=== PATIENT | male | born 1960 | race Caucasian/White ===

== ENCOUNTER 2016-05-14 08:42 | Day surgery (SDC) | payer OTHER ==
[~2016-05-14] VITALS: Ht 175.3 cm; Wt 140.0 kg
[~2016-05-14 08:42] MED LIST: ABAT125S INJ; ACLI400A2 INH; ALBU8.5H3 INH; ALBU8.5H5 INH; ALBUTEROL 0.083%; AMLO10TA4 PO; ATEN100T PO; ATEN25TA PO; ATEN50TA41 PO; AZEL205. NAS; CEFD300C2 PO; CETI10TA18 PO; CETI10TA32 PO; CLON0.25 PO; CLON1TAB23 PO; CYCL-259 PO; DILT240C2 PO; DIPH25CA61 PO; DOXY100C15 PO; DOXY100T PO; FLUT16SP INH; FOLI-17 PO; FURO20TA3 PO; FURO40TA6 PO; GUAI-103 PO; GUAI400T26 PO; HYDR-3240 PO; HYDR-3343 PO; HYDR100T25 PO; IBUP800T PO; LEFL20TA16 PO; LEVO750T26 PO; MAGNESIUM PO; METO200T3 PO; MINO100C PO; MOME13HF INH; OMEP40CA6 PO; OXYC-229 PO; OXYC1TAB9 PO; OXYC5CAP4 PO; POTA10CA PO; POTA20PA8 PO; POTA25TA3 PO; POTA25TA4 PO; PRED-298 PO; PRED10TA PO; PRED10TA14 PO; SULF1TAB3 PO; VENL37.57 PO; VENL37.58 PO; VENL75TA PO
[2016-05-14 09:23] VITALS: BP 145/84
[2016-05-14] MEDS ORDERED: LACTATED RINGERS 1,000 ML IV SCH (09:45)
[2016-05-14] MEDS ORDERED: MIDAZOLAM 1 MG/ML, 2ML ONE (11:20)
[2016-05-14] MEDS ORDERED: FENTANYL PF 250 MCG/5ML ONE (11:20)
[2016-05-14] MEDS ORDERED: KETAMINE 10 MG/ML, 20ML ONE (11:25)
[2016-05-14] MEDS ORDERED: OXYcodone 5 MG/5 ML ORAL.SOL UDC PO PRN (12:00)
[2016-05-14] MEDS ORDERED: PROMETHAZINE 25 MG/ML, 1ML IV PRN (12:00)
[2016-05-14] MEDS ORDERED: KETOROLAC 30 MG/1 ML IV PRN (12:00)
[2016-05-14] MEDS ORDERED: FENTANYL PF 100 MCG/2ML IV PRN (12:00)
[2016-05-14] MEDS ORDERED: LABETALOL 5MG/ML, 20ML IV PRN (12:00)
[2016-05-14] MEDS ORDERED: ONDANSETRON 2MG/ML, 2ML IVPush PRN (12:00)
[2016-05-14] MEDS ORDERED: ALBUTEROL/IPRATROPIUM 2.5MG/0.5MG, 3 ML NPPB PRN (12:00)
[2016-05-14] MEDS ORDERED: hydrALAzine 20 MG/ML, 1ML IV PRN (12:00)
[2016-05-14] MEDS ORDERED: HYDROmorphone 1 MG/ML, 1ML IV PRN (12:00)
[2016-05-14] MEDS ORDERED: ALBUTEROL SULFATE 2.5 MG/3 ML NPPB PRN (12:00)
[2016-05-14] MEDS ORDERED: PROPOFOL 10 MG/ML, 20ML ONE (16:12)
[2016-05-14] MEDS ORDERED: PROPOFOL 10 MG/ML, 50ML ONE (16:12)
== END 2016-05-14 12:50 | disposition home or self-care (01) ==
LOC: OUT 08:42
PROVIDERS: ATTEND Internal Medicine Gastroenterology
DX: C15.5 Malignant neoplasm of lower third of esophagus (principal); K21.9 Gastro-esophageal reflux disease without esophagitis; J45.909 Unspecified asthma, uncomplicated; J44.9 Chronic obstructive pulmonary disease, unspecified; I10 Essential (primary) hypertension; F41.9 Anxiety disorder, unspecified; F32.9 Major depressive disorder, single episode, unspecified; F17.210 Nicotine dependence, cigarettes, uncomplicated; F12.90 Cannabis use, unspecified, uncomplicated; E66.01 Morbid (severe) obesity due to excess calories; Z68.42 Body mass index [BMI] 45.0-49.9, adult
CPT/HCPCS: 43239; 88305; J2250; J2704; J3010; J7120

== ENCOUNTER 2016-06-16 14:49 | Emergency (ER) | payer OTHER ==
[~2016-06-16] VITALS: Ht 175.3 cm; Wt 129.5 kg
[~2016-06-16 14:49] MED LIST changes: -CEFD300C2 PO; +CEFD300C37 PO
[2016-06-16] MEDS ORDERED: PROM25SU34 RC (15:57)
[2016-06-16] MEDS ORDERED: PANT20TA3 PO (15:57)
[2016-06-16] MEDS ORDERED: SODIUM CHLORIDE FLUSH 10ML SYR IVF ONE (16:00)
[2016-06-16] MEDS ORDERED: SODIUM CHLORIDE 0.9% 1,000ML IVBOLUS ONE (16:00)
[2016-06-16] MEDS ORDERED: ONDANSETRON 2MG/ML, 2ML IVPush ONE (16:00)
[2016-06-16] MEDS ORDERED: ONDANSETRON 2MG/ML, 2ML ONE (16:01)
[2016-06-16 16:05] LABS: BLOOD UREA NITROGEN 10 mg/dL (7-18)
[2016-06-16 16:19] VITALS: BP 111/69
== END 2016-06-16 17:37 | disposition home or self-care (01) ==
LOC: ED 17:12
DX: C15.9 Malignant neoplasm of esophagus, unspecified (principal); R13.10 Dysphagia, unspecified; K21.9 Gastro-esophageal reflux disease without esophagitis; J45.909 Unspecified asthma, uncomplicated; I10 Essential (primary) hypertension
CPT/HCPCS: 36415; 80048; 82040; 85025; 96361; 96374; 99285; J2405; J7030

== ENCOUNTER 2016-06-19 16:57 | Emergency (ER) | payer OTHER ==
[~2016-06-19] VITALS: Ht 175.3 cm; Wt 126.2 kg
[~2016-06-19 16:57] MED LIST changes: +PANT20TA3 PO; +PROM25SU34 RC
[2016-06-19] MEDS ORDERED: SODIUM CHLORIDE 0.9% 1,000ML IVBOLUS ONE (17:30)
[2016-06-19] MEDS ORDERED: SODIUM CHLORIDE FLUSH 10ML SYR IVF ONE (17:30)
[2016-06-19] MEDS ORDERED: ONDANSETRON 2MG/ML, 2ML ONE (17:44)
[2016-06-19 17:59] LABS: ASPARTATE AMINO TRANSFERASE 16 U/L (15-37); BLOOD UREA NITROGEN 10 mg/dL (7-18)
[2016-06-19] MEDS ORDERED: ONDANSETRON 2MG/ML, 2ML IVPush ONE (19:00)
[2016-06-19 19:09] VITALS: BP 117/87
[2016-06-20] MEDS ORDERED: IBUP200T48 PO (22:44)
[2016-06-20] MEDS ORDERED: LEFL10TA14 PO (22:46)
[2016-06-20] MEDS ORDERED: ABAT125S INJ (22:47)
[2016-06-20] MEDS ORDERED: OMEP40CA6 PO (22:48)
[2016-06-20] MEDS ORDERED: MOME13HF INH (23:15)
[2016-06-20] MEDS ORDERED: ACLI400A2 INH (23:17)
[2016-06-20] MEDS ORDERED: CLON-365 PO (23:19)
[2016-06-20] MEDS ORDERED: CYCL-259 PO (23:20)
== END 2016-06-19 19:12 | disposition home or self-care (01) ==
LOC: ED 19:03
DX: R11.0 Nausea (principal); K59.00 Constipation, unspecified; E11.9 Type 2 diabetes mellitus without complications; I10 Essential (primary) hypertension; F17.200 Nicotine dependence, unspecified, uncomplicated
CPT/HCPCS: 36415; 74020; 80053; 83690; 85025; 96361; 96374; 99285; J2405; J7030

== ENCOUNTER 2016-06-20 21:48 | Emergency (ER) | payer OTHER ==
[~2016-06-20] VITALS: Ht 175.3 cm; Wt 120.0 kg
[2016-06-20] MEDS ORDERED: IBUP200T48 PO (22:44)
[2016-06-20] MEDS ORDERED: LEFL10TA14 PO (22:46)
[2016-06-20] MEDS ORDERED: ABAT125S INJ (22:47)
[2016-06-20] MEDS ORDERED: OMEP40CA6 PO (22:48)
[2016-06-20] MEDS ORDERED: SODIUM CHLORIDE 0.9% 1,000ML IVBOLUS ONE (23:00)
[2016-06-20] MEDS ORDERED: SODIUM CHLORIDE FLUSH 10ML SYR IVF ONE (23:00)
[2016-06-20 23:14] LABS: BLOOD UREA NITROGEN 12 mg/dL (7-18)
[2016-06-20] MEDS ORDERED: MOME13HF INH (23:15)
[2016-06-20 23:17] LABS: ASPARTATE AMINO TRANSFERASE 22 U/L (15-37)
[2016-06-20] MEDS ORDERED: ACLI400A2 INH (23:17)
[2016-06-20] MEDS ORDERED: CLON-365 PO (23:19)
[2016-06-20] MEDS ORDERED: CYCL-259 PO (23:20)
[2016-06-21] MEDS ORDERED: OMNIPAQUE 350 MG/ML, 100ML BOTTLE ONE (00:13)
[2016-06-21] MEDS ORDERED: SODIUM CHLORIDE 0.9% 1,000ML IVBOLUS ONE (01:00)
[2016-06-21 01:18] LABS: SPERM-FLAG NOT PRESENT; SRC-FLAG NOT PRESENT; XTAL-FLAG NOT PRESENT; YLC-FLAG NOT PRESENT
[2016-06-21 01:58] VITALS: BP 135/90
== END 2016-06-21 01:59 | disposition home or self-care (01) ==
LOC: ED 23:32
DX: E86.0 Dehydration (principal); K62.5 Hemorrhage of anus and rectum; R10.84 Generalized abdominal pain; E11.9 Type 2 diabetes mellitus without complications; I10 Essential (primary) hypertension; M06.9 Rheumatoid arthritis, unspecified; J45.909 Unspecified asthma, uncomplicated; F17.200 Nicotine dependence, unspecified, uncomplicated
CPT/HCPCS: 36415; 74177; 80053; 81001; 83690; 85025; 85610; 85730; 96360; 96361; 99285; J7030; Q9967

== ENCOUNTER 2016-06-25 10:48 | Inpatient (IN) | payer OTHER ==
[~2016-06-25] VITALS: Ht 175.3 cm; Wt 125.3 kg
[~2016-06-25 10:48] MED LIST changes: +CLON-365 PO; +IBUP200T48 PO; +LEFL10TA14 PO
[2016-06-25] MEDS ORDERED: LACTATED RINGERS 1,000 ML IV SCH (11:42)
[2016-06-25] MEDS ORDERED: ONDA8TAB9 PO (11:55)
[2016-06-25] MEDS ORDERED: ALBU0.63 NEB (11:55)
[2016-06-25] MEDS ORDERED: CARBOPLATIN IV (11:55)
[2016-06-25] MEDS ORDERED: PACLITAXEL IV (11:55)
[2016-06-25] MEDS ORDERED: MAGN500C PO (11:56)
[2016-06-25] MEDS ORDERED: DIPH25CA61 PO (11:56)
[2016-06-25] MEDS ORDERED: LIDOCAINE 1%, 2ML SQ PRN (12:00)
[2016-06-25] MEDS ORDERED: HEPARIN 5,000 UNITS/ML, 1ML ONE (12:44)
[2016-06-25] MEDS ORDERED: LIDOCAINE/PF 1%, 30ML ONE (12:45)
[2016-06-25] MEDS ORDERED: HEPARIN 1,000 UNITS/ML, 10ML ONE (12:45)
[2016-06-25] MEDS ORDERED: BUPIVACAINE/PF-EPI 0.5% 1:200K ONE (12:45)
[2016-06-25] MEDS ORDERED: ONDANSETRON 2MG/ML, 2ML ONE ×2 (13:05→15:39)
[2016-06-25] MEDS ORDERED: PROPOFOL 10 MG/ML, 20ML ONE (13:05)
[2016-06-25] MEDS ORDERED: GLYCOPYRROLATE 0.2MG/1ML ONE (13:05)
[2016-06-25] MEDS ORDERED: CEFAZOLIN 1,000 MG ONE (13:05)
[2016-06-25] MEDS ORDERED: ROCURONIUM 10 MG/ML ONE (13:05)
[2016-06-25] MEDS ORDERED: SUCCINYLCHOLINE 20 MG/ML, 10ML ONE (13:05)
[2016-06-25] MEDS ORDERED: NEOSTIGMINE 1 MG/ML, 10ML ONE (13:05)
[2016-06-25] MEDS ORDERED: DEXAMETHASONE 4 MG/ML, 1ML ONE (13:05)
[2016-06-25] MEDS ORDERED: FENTANYL PF 250 MCG/5ML ONE (13:06)
[2016-06-25] MEDS ORDERED: BUPIVACAINE/PF-EPI 0.25% 1:200K ONE (13:39)
[2016-06-25] MEDS ORDERED: LABETALOL 5MG/ML, 20ML IV PRN (14:00)
[2016-06-25] MEDS ORDERED: ONDANSETRON 2MG/ML, 2ML IVPush PRN (14:00)
[2016-06-25] MEDS ORDERED: PROMETHAZINE 25 MG/ML, 1ML IV PRN (14:00)
[2016-06-25] MEDS ORDERED: hydrALAzine 20 MG/ML, 1ML IV PRN (14:00)
[2016-06-25] MEDS ORDERED: OXYcodone 5 MG/5 ML ORAL.SOL UDC PO PRN (14:00)
[2016-06-25] MEDS ORDERED: MEPERIDINE/PF 25MG/0.5ML IVPush PRN (14:00)
[2016-06-25] MEDS ORDERED: MIDAZOLAM 1 MG/ML, 2ML IV PRN (14:00)
[2016-06-25] MEDS: morphine SULFATE 10 MG/ML, 1ML IV PRN ×5 (15:20→20:00)
[2016-06-25] MEDS ORDERED: morphine SULFATE 10 MG/ML, 1ML ONE (15:23)
[2016-06-25] MEDS ORDERED: FUROSEMIDE 20 MG/2 ML ONE (15:35)
[2016-06-25] MEDS ORDERED: OXYcodone 5 MG/5 ML ORAL.SOL UDC ONE (15:46)
[2016-06-25] MEDS: FENTANYL PF 100 MCG/2ML IV PRN ×2 (16:00→16:15)
[2016-06-25] MEDS ORDERED: FENTANYL PF 100 MCG/2ML ONE (16:05)
[2016-06-25] MEDS: HYDROmorphone 1 MG/ML, 1ML IV PRN ×2 (16:20→16:26)
[2016-06-25] MEDS ORDERED: HYDROmorphone 2 MG/ML, 1ML ONE (16:25)
[2016-06-25] MEDS ORDERED: FUROSEMIDE 20 MG/2 ML IV ONE (16:30)
[2016-06-25 17:00] VITALS: BP 140/80
[2016-06-25] MEDS: LACTATED RINGERS 1,000 ML IV SCH (17:30)
[2016-06-25] MEDS ORDERED: ALBUTEROL/IPRATROPIUM 2.5MG/0.5MG, 3 ML ONE (17:38)
[2016-06-25] MEDS: ENOXAPARIN 40 MG/0.4 ML SQ SCH (18:00)
[2016-06-25 19:01] VITALS: BP 122/63
[2016-06-25] MEDS ORDERED: ALBUTEROL SULFATE 2.5 MG/3 ML ONE (19:15)
[2016-06-25] MEDS: KETOROLAC 30 MG/1 ML IV PRN (20:00)
[2016-06-25] MEDS: DIPHENHYDRAMINE MC SCH (21:00)
[2016-06-25] MEDS: IBUPROFEN MC SCH (21:00)
[2016-06-25] MEDS: ALBUTEROL SULFATE 2.5 MG/3 ML NPPB SCH (21:00)
[2016-06-25] MEDS: CYCLOBENZAPRINE MC SCH (21:00)
[2016-06-25] MEDS: CETIRIZINE MC SCH (21:00)
[2016-06-25] MEDS: DULERA HOMEINH SCH (23:00)
[2016-06-25 23:42] VITALS: BP 148/79
[2016-06-26] MEDS: KETOROLAC 30 MG/1 ML IV PRN ×2 (02:21→20:11)
[2016-06-26] MEDS: morphine SULFATE 10 MG/ML, 1ML IV PRN ×3 (02:21→20:11)
[2016-06-26] MEDS: LACTATED RINGERS 1,000 ML IV SCH ×3 (02:41→17:30)
[2016-06-26 04:01] VITALS: BP 139/72
[2016-06-26] MEDS: ALBUTEROL SULFATE 2.5 MG/3 ML NPPB SCH ×3 (07:20→19:51)
[2016-06-26 07:30] VITALS: BP 150/85
[2016-06-26] MEDS ORDERED: TEMPLATE NON-FORMULARY MED. (Albuterol Sulfate (Proair Hfa) 0 PUFFS) INH PRN (07:30)
[2016-06-26] MEDS ORDERED: ALBUTEROL SULFATE 2.5 MG/3 ML NEB PRN (07:30)
[2016-06-26] MEDS: [UNRECOGNIZED DRUG - OTHER] INH SCH ×2 (09:00→21:46)
[2016-06-26] MEDS: CETIRIZINE MC SCH ×2 (09:00→16:49)
[2016-06-26] MEDS: FLUTICASONE NASAL SPRAY 16GM NAS SCH ×2 (09:00→21:46)
[2016-06-26] MEDS: ACLIDINIUM BROMIDE 400 MCG INH SCH ×2 (09:00→21:46)
[2016-06-26] MEDS: DULERA HOMEINH SCH ×2 (09:00→21:45)
[2016-06-26] MEDS ORDERED: CETIRIZINE HCL 20 MG PO SCH (09:00)
[2016-06-26] MEDS: FORMOTEROL INH SCH ×2 (09:00→21:46)
[2016-06-26] MEDS: DIPHENHYDRAMINE MC SCH ×2 (09:00→16:49)
[2016-06-26] MEDS: FOLIC ACID 1 MG TABLET PO SCH (09:00)
[2016-06-26] MEDS: CYCLOBENZAPRINE MC SCH ×2 (09:00→16:49)
[2016-06-26] MEDS: IBUPROFEN 200 MG TABLET PO SCH ×3 (09:00→21:43)
[2016-06-26] MEDS: IBUPROFEN MC SCH ×2 (09:00→16:49)
[2016-06-26] MEDS: VENLAFAXINE 75MG TABLET PO SCH (09:00)
[2016-06-26] MEDS: ATENOLOL 100 MG TABLET PO SCH ×2 (09:00→23:06)
[2016-06-26] MEDS: AZELASTINE HCL NAS SCH (09:00)
[2016-06-26] MEDS: POTASSIUM CHLORIDE 20 MEQ TAB.ER.PRT PO SCH (09:00)
[2016-06-26] MEDS: MOMETASONE INH SCH ×2 (09:00→21:46)
[2016-06-26 09:38] LABS: BLOOD UREA NITROGEN 15 mg/dL (7-18)
[2016-06-26 09:40] LABS: ASPARTATE AMINO TRANSFERASE 25 U/L (15-37)
[2016-06-26] MEDS: DIPHENHYDRAMINE 25 MG CAPSULE PO SCH ×2 (10:33→21:42)
[2016-06-26] MEDS: CYCLOBENZAPRINE 10 MG TABLET PO SCH ×3 (10:33→21:42)
[2016-06-26] MEDS ORDERED: ENOXAPARIN 40 MG/0.4 ML SQ SCH (12:30)
[2016-06-26] MEDS ORDERED: ONDANSETRON 2MG/ML, 2ML IVPush PRN (12:30)
[2016-06-26 13:20] VITALS: BP 109/66
[2016-06-26] MEDS: METOPROLOL SUCCINATE 100 MG TAB.ER.24H PO SCH ×2 (14:16→21:45)
[2016-06-26] MEDS: MAGNESIUM OXIDE 400 MG TABLET PO SCH (14:17)
[2016-06-26] MEDS: OMEPRAZOLE 20 MG CAPSULE.DR PO SCH ×2 (14:17→21:44)
[2016-06-26] MEDS: SODIUM CHLORIDE 0.9% 1,000 ML IV SCH ×2 (14:19→23:34)
[2016-06-26 19:15] VITALS: BP 130/79
[2016-06-26 21:37] VITALS: BP 138/73
[2016-06-26] MEDS: AMLODIPINE 5 MG TABLET PO SCH (21:43)
[2016-06-26] MEDS: ENOXAPARIN 40 MG/0.4 ML SQ SCH (21:49)
[2016-06-27] VITALS (7 sets, daily range): BP systolic 108–135; BP diastolic 68–82
[2016-06-27] MEDS: CYCLOBENZAPRINE MC SCH ×3 (01:00→16:03)
[2016-06-27] MEDS: IBUPROFEN MC SCH ×3 (01:00→16:03)
[2016-06-27] MEDS: CETIRIZINE MC SCH ×3 (01:00→16:03)
[2016-06-27] MEDS: DIPHENHYDRAMINE MC SCH ×3 (01:00→16:03)
[2016-06-27] MEDS: ONDANSETRON 8 MG TABLET PO PRN ×3 (02:46→15:53)
[2016-06-27] MEDS: morphine SULFATE 10 MG/ML, 1ML IV PRN ×2 (03:13→09:25)
[2016-06-27] MEDS: KETOROLAC 30 MG/1 ML IV PRN ×2 (03:13→15:53)
[2016-06-27] MEDS: ALBUTEROL SULFATE 2.5 MG/3 ML NPPB SCH ×2 (07:36→20:51)
[2016-06-27] MEDS: DULERA HOMEINH SCH ×2 (08:39→20:46)
[2016-06-27] MEDS: ACLIDINIUM BROMIDE 400 MCG INH SCH ×2 (08:40→20:45)
[2016-06-27] MEDS: [UNRECOGNIZED DRUG - OTHER] INH SCH ×2 (08:41→20:46)
[2016-06-27] MEDS: MOMETASONE INH SCH ×2 (08:41→20:46)
[2016-06-27] MEDS: SODIUM CHLORIDE FLUSH 3ML SYRINGE IVF SCH ×2 (08:41→20:54)
[2016-06-27] MEDS: FORMOTEROL INH SCH ×2 (08:41→20:46)
[2016-06-27] MEDS: AZELASTINE HCL NAS SCH (08:41)
[2016-06-27] MEDS: FLUTICASONE NASAL SPRAY 16GM NAS SCH ×2 (08:42→20:45)
[2016-06-27] MEDS: FOLIC ACID 1 MG TABLET PO SCH (08:43)
[2016-06-27] MEDS: OMEPRAZOLE 20 MG CAPSULE.DR PO SCH ×2 (08:43→20:42)
[2016-06-27] MEDS: MAGNESIUM OXIDE 400 MG TABLET PO SCH (08:43)
[2016-06-27] MEDS: POTASSIUM CHLORIDE 20 MEQ TAB.ER.PRT PO SCH (08:43)
[2016-06-27] MEDS: ATENOLOL 100 MG TABLET PO SCH ×2 (08:44→20:44)
[2016-06-27] MEDS: METOPROLOL SUCCINATE 100 MG TAB.ER.24H PO SCH ×2 (08:44→20:44)
[2016-06-27] MEDS: DIPHENHYDRAMINE 25 MG CAPSULE PO SCH ×2 (08:44→20:42)
[2016-06-27] MEDS: VENLAFAXINE 75MG TABLET PO SCH (08:45)
[2016-06-27] MEDS: IBUPROFEN 200 MG TABLET PO SCH ×3 (08:47→20:54)
[2016-06-27] MEDS: CYCLOBENZAPRINE 10 MG TABLET PO SCH ×3 (08:47→20:42)
[2016-06-27] MEDS: OXYcodone/APAP 10/325MG TABLET PO PRN ×2 (10:45→20:42)
[2016-06-27] MEDS: ENOXAPARIN 40 MG/0.4 ML SQ SCH (17:45)
[2016-06-27] MEDS: AMLODIPINE 5 MG TABLET PO SCH (20:44)
[2016-06-28 00:45] VITALS: BP 127/77
[2016-06-28] MEDS: DIPHENHYDRAMINE MC SCH (01:00)
[2016-06-28] MEDS: CETIRIZINE MC SCH (01:00)
[2016-06-28] MEDS: CYCLOBENZAPRINE MC SCH (01:00)
[2016-06-28] MEDS: IBUPROFEN MC SCH (01:00)
[2016-06-28] MEDS: KETOROLAC 30 MG/1 ML IV PRN ×2 (03:39→11:36)
[2016-06-28 06:17] LABS: BLOOD UREA NITROGEN 18 mg/dL (7-18)
[2016-06-28 06:21] LABS: ASPARTATE AMINO TRANSFERASE 23 U/L (15-37)
[2016-06-28 07:37] VITALS: BP 153/90
[2016-06-28] MEDS: FLUTICASONE NASAL SPRAY 16GM NAS SCH (07:39)
[2016-06-28] MEDS: ACLIDINIUM BROMIDE 400 MCG INH SCH (07:40)
[2016-06-28] MEDS: DULERA HOMEINH SCH (07:40)
[2016-06-28] MEDS: FORMOTEROL INH SCH (07:41)
[2016-06-28] MEDS: [UNRECOGNIZED DRUG - OTHER] INH SCH (07:41)
[2016-06-28] MEDS: MOMETASONE INH SCH (07:41)
[2016-06-28] MEDS: AZELASTINE HCL NAS SCH (07:41)
[2016-06-28] MEDS: SODIUM CHLORIDE FLUSH 3ML SYRINGE IVF SCH (08:45)
[2016-06-28] MEDS: DIPHENHYDRAMINE 25 MG CAPSULE PO SCH (08:46)
[2016-06-28] MEDS: VENLAFAXINE 75MG TABLET PO SCH (08:46)
[2016-06-28] MEDS: POTASSIUM CHLORIDE 20 MEQ TAB.ER.PRT PO SCH (08:48)
[2016-06-28] MEDS: MAGNESIUM OXIDE 400 MG TABLET PO SCH (08:48)
[2016-06-28] MEDS: FOLIC ACID 1 MG TABLET PO SCH (08:48)
[2016-06-28] MEDS: OMEPRAZOLE 20 MG CAPSULE.DR PO SCH (08:49)
[2016-06-28] MEDS: IBUPROFEN 200 MG TABLET PO SCH ×2 (08:49→08:54)
[2016-06-28] MEDS: METOPROLOL SUCCINATE 100 MG TAB.ER.24H PO SCH (08:50)
[2016-06-28] MEDS: ATENOLOL 100 MG TABLET PO SCH (08:50)
[2016-06-28] MEDS: OXYcodone/APAP 10/325MG TABLET PO PRN (08:52)
[2016-06-28] MEDS: CYCLOBENZAPRINE 10 MG TABLET PO SCH (08:53)
[2016-06-28] MEDS: ALBUTEROL SULFATE 2.5 MG/3 ML NPPB SCH (09:45)
[2016-06-28] MEDS ORDERED: OMEP40CA6 PO (11:30)
[2016-06-28 13:34] VITALS: BP 118/69
[2016-06-28] MEDS ORDERED: ALBUTEROL SULFATE 2.5 MG/3 ML NPPB SCH (21:00)
[2016-07-06] MEDS ORDERED: LEFL20TA16 PO (18:24)
[2016-07-06] MEDS ORDERED: ABAT125S INJ (18:24)
[2016-07-06] MEDS ORDERED: CYCL-259 PO (18:24)
== END 2016-06-28 15:34 | disposition home or self-care (01) | DRG 353 ==
LOC: OUT 10:48 → 4NOR 17:00 → OUT 23:03 → 4NOR 23:04 → 3NW 06-28 07:45
PROVIDERS: ADMIT Surgery; ATTEND Surgery
PROC: 0JHD0WZ Insertion of Totally Implantable Vascular Access Device into Right Upper Arm Subcutaneous Tissue and Fascia, Open Approach (ICD-10-PCS; 2016-06-25)
PROC: 02HV33Z Insertion of Infusion Device into Superior Vena Cava, Percutaneous Approach (ICD-10-PCS; 2016-06-25)
PROC: B5181ZA Fluoroscopy of Superior Vena Cava using Low Osmolar Contrast, Guidance (ICD-10-PCS; 2016-06-25)
PROC: 0DHA0UZ Insertion of Feeding Device into Jejunum, Open Approach (ICD-10-PCS; principal; 2016-06-25 13:00)
PROC: 0WQF0ZZ Repair Abdominal Wall, Open Approach (ICD-10-PCS; 2016-06-25 13:00)
DX: K22.2 Esophageal obstruction (principal); E43 Unspecified severe protein-calorie malnutrition; C16.0 Malignant neoplasm of cardia; Z68.41 Body mass index [BMI] 40.0-44.9, adult; C15.4 Malignant neoplasm of middle third of esophagus; C15.9 Malignant neoplasm of esophagus, unspecified; K43.0 Incisional hernia with obstruction, without gangrene; R13.10 Dysphagia, unspecified; E66.01 Morbid (severe) obesity due to excess calories; M06.9 Rheumatoid arthritis, unspecified; M19.90 Unspecified osteoarthritis, unspecified site; F32.9 Major depressive disorder, single episode, unspecified; F41.9 Anxiety disorder, unspecified; G47.33 Obstructive sleep apnea (adult) (pediatric); G89.29 Other chronic pain; I10 Essential (primary) hypertension; J30.2 Other seasonal allergic rhinitis; J44.9 Chronic obstructive pulmonary disease, unspecified; K21.9 Gastro-esophageal reflux disease without esophagitis; K43.2 Incisional hernia without obstruction or gangrene; F17.210 Nicotine dependence, cigarettes, uncomplicated; Z79.891 Long term (current) use of opiate analgesic; Z79.899 Other long term (current) drug therapy; Z88.6 Allergy status to analgesic agent; Z88.1 Allergy status to other antibiotic agents; Y84.2 Radiological procedure and radiotherapy as the cause of abnormal reaction of the patient, or of later complication, without mention of misadventure at the time of the procedure; Y92.89 Other specified places as the place of occurrence of the external cause; Y93.89 Activity, other specified; Y99.8 Other external cause status; Y73.1 Therapeutic (nonsurgical) and rehabilitative gastroenterology and urology devices associated with adverse incidents; Z51.0 Encounter for antineoplastic radiation therapy; R59.9 Enlarged lymph nodes, unspecified
CPT/HCPCS: 36415; 71010; 77001; 77336; 77387; 77412; 80053; 83735; 84100; 85025; 94640; J0690; J1100; J1170; J1644; J1650; J1885; J2405; J2704; J2710; J3010; J3490; J7613; Q0162; C1788; J0330; J1940; J2270; J7030; J7120; Q0163

== ENCOUNTER → 2016-07-05 | Outpatient (CLI) | payer OTHER ==
[~2016-07-05] MED LIST changes: +ALBU0.63 NEB; +AMOX1TAB64 PO; +CARBOPLATIN IV; +MAGN500C PO; +ONDA8TAB9 PO; +PACLITAXEL IV; +VENL75CA6 PO
== END | disposition home or self-care (01) ==
LOC: WOUND 09:51
PROVIDERS: ATTEND Physician Assistant
DX: T81.31XA Disruption of external operation (surgical) wound, not elsewhere classified, initial encounter (principal); K43.0 Incisional hernia with obstruction, without gangrene; Z85.828 Personal history of other malignant neoplasm of skin; I10 Essential (primary) hypertension; M06.9 Rheumatoid arthritis, unspecified; J45.909 Unspecified asthma, uncomplicated; F32.9 Major depressive disorder, single episode, unspecified; F41.9 Anxiety disorder, unspecified; F17.210 Nicotine dependence, cigarettes, uncomplicated; Y92.89 Other specified places as the place of occurrence of the external cause; Y83.8 Other surgical procedures as the cause of abnormal reaction of the patient, or of later complication, without mention of misadventure at the time of the procedure
CPT/HCPCS: 11042; G0463; WOU0463

== ENCOUNTER 2016-07-10 11:24 | Inpatient (IN) | payer OTHER ==
[~2016-07-10] VITALS: Ht 175.3 cm; Wt 121.0 kg
[~2016-07-10 11:24] MED LIST changes: -AMOX1TAB64 PO; -VENL75CA6 PO
[2016-07-10] MEDS ORDERED: SODIUM CHLORIDE FLUSH 10ML SYR IVF ONE (12:00)
[2016-07-10] MEDS ORDERED: SODIUM CHLORIDE 0.9% 1,000ML IVBOLUS ONE ×2 (12:00→15:30)
[2016-07-10 12:11] LABS: ASPARTATE AMINO TRANSFERASE 11 U/L (15-37); BLOOD UREA NITROGEN 6 mg/dL (7-18)
[2016-07-10] MEDS ORDERED: ABAT125S INJ (13:04)
[2016-07-10] MEDS ORDERED: VENL75CA6 PO (13:06)
[2016-07-10] MEDS ORDERED: DIPH25CA61 PO (13:07)
[2016-07-10] MEDS ORDERED: AMOX1TAB64 PO (13:34)
[2016-07-10] MEDS ORDERED: ONDANSETRON 2MG/ML, 2ML ONE (13:59)
[2016-07-10] MEDS ORDERED: ONDANSETRON 2MG/ML, 2ML IVPush ONE (14:00)
[2016-07-10] MEDS ORDERED: ONDANSETRON 8 MG TABLET PO PRN (16:30)
[2016-07-10] MEDS ORDERED: CETIRIZINE HCL 20 MG PO SCH (21:00)
[2016-07-10] MEDS ORDERED: AMLODIPINE 5 MG TABLET PO SCH (21:00)
[2016-07-10] MEDS: FLUTICASONE NASAL SPRAY 16GM NAS SCH (21:00)
[2016-07-10] MEDS: METOPROLOL SUCCINATE 100 MG TAB.ER.24H PO SCH (21:00)
[2016-07-10] MEDS: ATENOLOL 100 MG TABLET PO SCH (21:00)
[2016-07-10 21:26] VITALS: BP 122/66
[2016-07-10] MEDS: CYCLOBENZAPRINE 10 MG TABLET PO SCH (22:14)
[2016-07-10] MEDS: DIPHENHYDRAMINE 25 MG CAPSULE PO SCH (22:14)
[2016-07-10] MEDS: SODIUM CHLORIDE 0.9% 1,000 ML IV SCH (22:14)
[2016-07-10] MEDS: DOCUSATE 100 MG CAPSULE PO SCH (22:15)
[2016-07-10] MEDS: OXYcodone/APAP 10/325MG TABLET PO PRN (22:15)
[2016-07-10] MEDS: OMEPRAZOLE 20 MG CAPSULE.DR PO SCH (22:15)
[2016-07-10] MEDS: AMOXICILLIN/CLAV 875-125MG TABLET PO SCH (22:15)
[2016-07-10] MEDS: ONDANSETRON 2MG/ML, 2ML IVPush PRN (22:16)
[2016-07-10] MEDS ORDERED: ALBUTEROL SULFATE 2.5 MG/3 ML ONE (23:15)
[2016-07-11 00:26] VITALS: BP 113/74
[2016-07-11] MEDS ORDERED: ALBUTEROL SULFATE 2.5 MG/3 ML NPPB PRN (01:30)
[2016-07-11] MEDS: SODIUM CHLORIDE 0.9% 1,000 ML IV SCH (05:05)
[2016-07-11 05:42] LABS: BLOOD UREA NITROGEN 6 mg/dL (7-18)
[2016-07-11 05:45] LABS: ASPARTATE AMINO TRANSFERASE 9 U/L (15-37)
[2016-07-11] MEDS: OMEPRAZOLE 20 MG CAPSULE.DR PO SCH ×2 (08:00→18:21)
[2016-07-11 08:30] VITALS: BP 164/107
[2016-07-11] MEDS: ALBUTEROL SULFATE 2.5 MG/3 ML NPPB SCH ×2 (09:00→10:51)
[2016-07-11] MEDS: DIPHENHYDRAMINE 25 MG CAPSULE PO SCH (09:00)
[2016-07-11] MEDS: DOCUSATE 100 MG CAPSULE PO SCH (09:00)
[2016-07-11] MEDS: FLUTICASONE NASAL SPRAY 16GM NAS SCH (09:00)
[2016-07-11] MEDS: AMOXICILLIN/CLAV 875-125MG TABLET PO SCH (09:00)
[2016-07-11] MEDS: CYCLOBENZAPRINE 10 MG TABLET PO SCH ×2 (09:00→18:21)
[2016-07-11] MEDS ORDERED: FOLIC ACID 1 MG TABLET PO SCH (09:00)
[2016-07-11] MEDS: ATENOLOL 100 MG TABLET PO SCH (09:00)
[2016-07-11] MEDS ORDERED: VENLAFAXINE XR 37.5MG CAP.ER.24H PO SCH (09:00)
[2016-07-11] MEDS ORDERED: POLYETHYLENE GLYCOL 17 GM PACKET PO SCH (09:00)
[2016-07-11] MEDS ORDERED: CETIRIZINE 10 MG TABLET PO SCH (09:00)
[2016-07-11] MEDS: OXYcodone/APAP 10/325MG TABLET PO PRN ×2 (09:14→17:14)
[2016-07-11] MEDS: ONDANSETRON 2MG/ML, 2ML IVPush PRN (09:14)
[2016-07-11] MEDS: METOPROLOL SUCCINATE 100 MG TAB.ER.24H PO SCH (09:49)
[2016-07-11] MEDS ORDERED: ACETAMINOPHEN 325 MG TABLET PO PRN (11:30)
[2016-07-11] MEDS ORDERED: PROMETHAZINE 25 MG/ML, 1ML IV PRN (11:30)
[2016-07-11] MEDS ORDERED: MIDAZOLAM 1 MG/ML, 2ML IV PRN (11:30)
[2016-07-11] MEDS ORDERED: LABETALOL 5MG/ML, 20ML IV PRN (11:30)
[2016-07-11] MEDS ORDERED: OXYcodone 5 MG/5 ML ORAL.SOL UDC PO PRN (11:30)
[2016-07-11] MEDS ORDERED: MEPERIDINE/PF 25MG/0.5ML IVPush PRN (11:30)
[2016-07-11] MEDS ORDERED: HYDROmorphone 1 MG/ML, 1ML IV PRN (11:30)
[2016-07-11] MEDS ORDERED: hydrALAzine 20 MG/ML, 1ML IV PRN (11:30)
[2016-07-11] MEDS ORDERED: FENTANYL PF 100 MCG/2ML IV PRN (11:30)
[2016-07-11] MEDS ORDERED: ONDANSETRON 2MG/ML, 2ML IVPush PRN (11:30)
[2016-07-11] MEDS ORDERED: METOCLOPRAMIDE 5 MG/ML, 2ML IV PRN (11:30)
[2016-07-11] MEDS ORDERED: METOCLOPRAMIDE 5 MG/ML, 2ML ONE (11:52)
[2016-07-11] MEDS ORDERED: PROMETHAZINE 25 MG/ML, 1ML ONE (11:52)
[2016-07-11] MEDS ORDERED: OXYcodone 5 MG/5 ML ORAL.SOL UDC ONE (12:20)
[2016-07-11 14:47] VITALS: BP 156/85
[2016-07-11] MEDS ORDERED: PROPOFOL 10 MG/ML, 20ML ONE (15:40)
[2016-07-11] MEDS ORDERED: ONDANSETRON 2MG/ML, 2ML ONE (15:40)
== END 2016-07-11 19:20 | disposition home or self-care (01) | DRG 393 ==
LOC: ED 13:36 → EDIP 15:57 → 3NW 19:23
PROVIDERS: ADMIT Internal Medicine; ATTEND Internal Medicine
PROC: BD11YZZ Fluoroscopy of Esophagus using Other Contrast (ICD-10-PCS; 2016-07-11)
PROC: 0D758DZ Dilation of Esophagus with Intraluminal Device, Via Natural or Artificial Opening Endoscopic (ICD-10-PCS; principal; 2016-07-11 11:00)
DX: K94.13 Enterostomy malfunction (principal); E43 Unspecified severe protein-calorie malnutrition; C15.9 Malignant neoplasm of esophagus, unspecified; F11.20 Opioid dependence, uncomplicated; K43.0 Incisional hernia with obstruction, without gangrene; E86.0 Dehydration; D64.9 Anemia, unspecified; D75.89 Other specified diseases of blood and blood-forming organs; E66.01 Morbid (severe) obesity due to excess calories; F17.200 Nicotine dependence, unspecified, uncomplicated; F41.9 Anxiety disorder, unspecified; F32.9 Major depressive disorder, single episode, unspecified; G47.33 Obstructive sleep apnea (adult) (pediatric); G89.29 Other chronic pain; I10 Essential (primary) hypertension; J44.9 Chronic obstructive pulmonary disease, unspecified; J45.909 Unspecified asthma, uncomplicated; K21.9 Gastro-esophageal reflux disease without esophagitis; K22.2 Esophageal obstruction; K59.09 Other constipation; M06.9 Rheumatoid arthritis, unspecified; Z71.6 Tobacco abuse counseling; Z79.899 Other long term (current) drug therapy; Z68.39 Body mass index [BMI] 39.0-39.9, adult
CPT/HCPCS: 36415; 74328; 80053; 81001; 83690; 83735; 84100; 85025; 87086; 94640; 96361; 96374; J2405; J2550; J2704; J7613; C1769; C1876; J2765; J7030; Q0163

== ENCOUNTER → 2016-07-12 | Outpatient (CLI) | payer OTHER ==
[~2016-07-12] MED LIST changes: +AMOX1TAB64 PO; +VENL75CA6 PO
== END | disposition home or self-care (01) ==
LOC: WOUND 13:30
PROVIDERS: ATTEND Physician Assistant
DX: T81.31XD Disruption of external operation (surgical) wound, not elsewhere classified, subsequent encounter (principal); C15.4 Malignant neoplasm of middle third of esophagus; C15.5 Malignant neoplasm of lower third of esophagus; M06.9 Rheumatoid arthritis, unspecified; I10 Essential (primary) hypertension; J45.909 Unspecified asthma, uncomplicated; F32.9 Major depressive disorder, single episode, unspecified; F41.9 Anxiety disorder, unspecified; F17.210 Nicotine dependence, cigarettes, uncomplicated; E66.01 Morbid (severe) obesity due to excess calories; K21.9 Gastro-esophageal reflux disease without esophagitis; G47.30 Sleep apnea, unspecified; Z68.39 Body mass index [BMI] 39.0-39.9, adult; Z96.653 Presence of artificial knee joint, bilateral; Y83.8 Other surgical procedures as the cause of abnormal reaction of the patient, or of later complication, without mention of misadventure at the time of the procedure
CPT/HCPCS: 11042

== ENCOUNTER → 2016-07-17 | Outpatient (CLI) | payer OTHER | END | disposition home or self-care (01) | LOC: WOUND 14:30 | PROVIDERS: ATTEND Internal Medicine | DX: T81.31XD Disruption of external operation (surgical) wound, not elsewhere classified, subsequent encounter (principal); I10 Essential (primary) hypertension; J45.909 Unspecified asthma, uncomplicated; F32.9 Major depressive disorder, single episode, unspecified; F17.210 Nicotine dependence, cigarettes, uncomplicated; F41.9 Anxiety disorder, unspecified; Z96.653 Presence of artificial knee joint, bilateral; Z85.828 Personal history of other malignant neoplasm of skin; Y83.8 Other surgical procedures as the cause of abnormal reaction of the patient, or of later complication, without mention of misadventure at the time of the procedure | CPT/HCPCS: 11042; 97605 ==

== ENCOUNTER → 2016-07-24 | Outpatient (CLI) | payer OTHER | END | disposition home or self-care (01) | LOC: WOUND 13:15 | PROVIDERS: ATTEND Internal Medicine | DX: T81.31XD Disruption of external operation (surgical) wound, not elsewhere classified, subsequent encounter (principal); F41.9 Anxiety disorder, unspecified; F32.9 Major depressive disorder, single episode, unspecified; J44.9 Chronic obstructive pulmonary disease, unspecified; K21.9 Gastro-esophageal reflux disease without esophagitis; E66.01 Morbid (severe) obesity due to excess calories; Z68.39 Body mass index [BMI] 39.0-39.9, adult; M06.9 Rheumatoid arthritis, unspecified; F11.20 Opioid dependence, uncomplicated; Z85.01 Personal history of malignant neoplasm of esophagus; Z85.828 Personal history of other malignant neoplasm of skin; F17.210 Nicotine dependence, cigarettes, uncomplicated; Y83.8 Other surgical procedures as the cause of abnormal reaction of the patient, or of later complication, without mention of misadventure at the time of the procedure | CPT/HCPCS: 11042; 87070; 87077; 87186; 87205; 97605 ==

== ENCOUNTER 2016-07-31 11:38 | Day surgery (SDC) | payer OTHER ==
[~2016-07-31] VITALS: Ht 175.3 cm; Wt 112.0 kg
[2016-07-31 12:14] VITALS: BP 95/61
[2016-07-31 12:23] VITALS: BP 95/61
[2016-07-31] MEDS ORDERED: LACTATED RINGERS 1,000 ML IV SCH (12:43)
[2016-07-31] MEDS ORDERED: ONDANSETRON 2MG/ML, 2ML ONE (13:04)
[2016-07-31] MEDS ORDERED: PROPOFOL 10 MG/ML, 20ML ONE (13:04)
[2016-07-31] MEDS ORDERED: SUCCINYLCHOLINE 20 MG/ML, 10ML ONE (13:04)
[2016-07-31] MEDS ORDERED: MIDAZOLAM 1 MG/ML, 2ML ONE (13:07)
[2016-07-31] MEDS ORDERED: FENTANYL PF 100 MCG/2ML ONE (13:07)
[2016-07-31] MEDS ORDERED: ACETAMINOPHEN 325 MG TABLET PO PRN (14:00)
[2016-07-31] MEDS ORDERED: OXYcodone 5 MG/5 ML ORAL.SOL UDC PO PRN (14:00)
[2016-07-31] MEDS ORDERED: HYDROmorphone 1 MG/ML, 1ML IV PRN (14:00)
[2016-07-31] MEDS ORDERED: PROMETHAZINE 25 MG/ML, 1ML IV PRN (14:00)
[2016-07-31] MEDS ORDERED: hydrALAzine 20 MG/ML, 1ML IV PRN (14:00)
[2016-07-31] MEDS ORDERED: EPHEDRINE 50 MG/ML, 1ML IVPush PRN (14:00)
[2016-07-31] MEDS ORDERED: KETOROLAC 30 MG/1 ML IV PRN (14:00)
[2016-07-31] MEDS ORDERED: FENTANYL PF 100 MCG/2ML IV PRN (14:00)
[2016-07-31] MEDS ORDERED: HYDROcodone/APAP 7.5-325MG/15ML UDC PO PRN (14:00)
[2016-07-31] MEDS ORDERED: MIDAZOLAM 1 MG/ML, 2ML IV PRN (14:00)
[2016-07-31] MEDS ORDERED: LABETALOL 5MG/ML, 20ML IV PRN (14:00)
[2016-07-31] MEDS ORDERED: ONDANSETRON 2MG/ML, 2ML IVPush PRN (14:00)
[2016-07-31] MEDS ORDERED: MEPERIDINE/PF 25MG/0.5ML IVPush PRN (14:00)
== END 2016-07-31 14:40 ==
LOC: OUT 11:38
PROVIDERS: ATTEND Internal Medicine Gastroenterology
DX: K44.9 Diaphragmatic hernia without obstruction or gangrene (principal); F41.9 Anxiety disorder, unspecified; J45.909 Unspecified asthma, uncomplicated; F32.9 Major depressive disorder, single episode, unspecified; F19.90 Other psychoactive substance use, unspecified, uncomplicated; Z98.890 Other specified postprocedural states; Z85.01 Personal history of malignant neoplasm of esophagus; Z87.891 Personal history of nicotine dependence
CPT/HCPCS: 43247; 93005; J0330; J2250; J2405; J2704; J3010; J7120

== ENCOUNTER → 2016-08-07 | Outpatient (CLI) | payer OTHER | END | disposition home or self-care (01) | LOC: WOUND 14:30 | PROVIDERS: ATTEND Internal Medicine | DX: T81.31XD Disruption of external operation (surgical) wound, not elsewhere classified, subsequent encounter (principal); F41.9 Anxiety disorder, unspecified; F32.9 Major depressive disorder, single episode, unspecified; J44.9 Chronic obstructive pulmonary disease, unspecified; E66.01 Morbid (severe) obesity due to excess calories; Z68.39 Body mass index [BMI] 39.0-39.9, adult; F11.20 Opioid dependence, uncomplicated; M06.9 Rheumatoid arthritis, unspecified; Z85.828 Personal history of other malignant neoplasm of skin; Z85.01 Personal history of malignant neoplasm of esophagus; F17.210 Nicotine dependence, cigarettes, uncomplicated; Y83.8 Other surgical procedures as the cause of abnormal reaction of the patient, or of later complication, without mention of misadventure at the time of the procedure | CPT/HCPCS: 97597 ==

== ENCOUNTER → 2016-08-14 | Outpatient (CLI) | payer OTHER | END | disposition home or self-care (01) | LOC: WOUND 13:00 | PROVIDERS: ATTEND Internal Medicine | DX: T81.31XD Disruption of external operation (surgical) wound, not elsewhere classified, subsequent encounter (principal); C15.4 Malignant neoplasm of middle third of esophagus; C15.5 Malignant neoplasm of lower third of esophagus; K43.0 Incisional hernia with obstruction, without gangrene; M06.9 Rheumatoid arthritis, unspecified; M19.90 Unspecified osteoarthritis, unspecified site; I10 Essential (primary) hypertension; F32.9 Major depressive disorder, single episode, unspecified; F41.9 Anxiety disorder, unspecified; J44.9 Chronic obstructive pulmonary disease, unspecified; E66.01 Morbid (severe) obesity due to excess calories; F11.20 Opioid dependence, uncomplicated; K21.9 Gastro-esophageal reflux disease without esophagitis; G47.30 Sleep apnea, unspecified; E43 Unspecified severe protein-calorie malnutrition; F17.210 Nicotine dependence, cigarettes, uncomplicated; Z68.39 Body mass index [BMI] 39.0-39.9, adult; Z96.653 Presence of artificial knee joint, bilateral; Y83.8 Other surgical procedures as the cause of abnormal reaction of the patient, or of later complication, without mention of misadventure at the time of the procedure | CPT/HCPCS: 11042; 97605 ==

== ENCOUNTER → 2016-08-21 | Outpatient (CLI) | payer OTHER | END | disposition home or self-care (01) | LOC: WOUND 13:00 | PROVIDERS: ATTEND Internal Medicine | DX: T81.31XD Disruption of external operation (surgical) wound, not elsewhere classified, subsequent encounter (principal); K43.0 Incisional hernia with obstruction, without gangrene; L03.311 Cellulitis of abdominal wall; I10 Essential (primary) hypertension; J45.909 Unspecified asthma, uncomplicated; M06.9 Rheumatoid arthritis, unspecified; M19.90 Unspecified osteoarthritis, unspecified site; F32.9 Major depressive disorder, single episode, unspecified; F41.9 Anxiety disorder, unspecified; F17.210 Nicotine dependence, cigarettes, uncomplicated; Z96.653 Presence of artificial knee joint, bilateral; Z85.01 Personal history of malignant neoplasm of esophagus; Y83.8 Other surgical procedures as the cause of abnormal reaction of the patient, or of later complication, without mention of misadventure at the time of the procedure | CPT/HCPCS: 97597 ==

== ENCOUNTER → 2016-08-28 | Outpatient (CLI) | payer OTHER | END | disposition home or self-care (01) | LOC: WOUND 13:16 | PROVIDERS: ATTEND Internal Medicine | DX: T81.31XD Disruption of external operation (surgical) wound, not elsewhere classified, subsequent encounter (principal); I10 Essential (primary) hypertension; M06.9 Rheumatoid arthritis, unspecified; M19.90 Unspecified osteoarthritis, unspecified site; E66.01 Morbid (severe) obesity due to excess calories; J44.9 Chronic obstructive pulmonary disease, unspecified; K21.9 Gastro-esophageal reflux disease without esophagitis; F11.20 Opioid dependence, uncomplicated; F19.90 Other psychoactive substance use, unspecified, uncomplicated; F17.210 Nicotine dependence, cigarettes, uncomplicated; F41.9 Anxiety disorder, unspecified; F32.9 Major depressive disorder, single episode, unspecified; Z68.39 Body mass index [BMI] 39.0-39.9, adult; Z85.828 Personal history of other malignant neoplasm of skin; Z79.899 Other long term (current) drug therapy; Z85.01 Personal history of malignant neoplasm of esophagus; Z96.653 Presence of artificial knee joint, bilateral; Y83.8 Other surgical procedures as the cause of abnormal reaction of the patient, or of later complication, without mention of misadventure at the time of the procedure; G47.33 Obstructive sleep apnea (adult) (pediatric) | CPT/HCPCS: 97597 ==

== ENCOUNTER 2016-09-04 13:32 | Emergency (ER) | payer OTHER ==
[~2016-09-04] VITALS: Ht 175.3 cm; Wt 90.0 kg
[2016-09-04] VITALS (8 sets, daily range): BP systolic 101–133; BP diastolic 61–91
[~2016-09-04 13:32] MED LIST changes: -ALBU18HF INH; -ONDA8TAB12 PO
[2016-09-04] MEDS ORDERED: SODIUM CHLORIDE 0.9% 1,000 ML IV ONE (13:44)
[2016-09-04] MEDS ORDERED: ONDANSETRON 2MG/ML, 2ML IVPush ONE (14:00)
[2016-09-04] MEDS ORDERED: SODIUM CHLORIDE 0.9% 1,000ML IVBOLUS ONE (14:00)
[2016-09-04] MEDS ORDERED: MORPHINE SULFATE 4 MG/ML, 1ML IVPush PRN (14:00)
[2016-09-04 14:17] LABS: ASPARTATE AMINO TRANSFERASE 38 U/L (15-37); BLOOD UREA NITROGEN 12 mg/dL (7-18)
[2016-09-04 14:27] LABS: ANISOCYTOSIS 3+; HYPOCHROMIA 1+; MICROCYTOSIS 1+; POLYCHROMASIA 1+
[2016-09-04 14:28] LABS: LARGE PLATELETS 1+
[2016-09-04] MEDS ORDERED: MORPHINE SULFATE 4 MG/ML, 1ML ONE (15:29)
[2016-09-04] MEDS ORDERED: ONDANSETRON 2MG/ML, 2ML ONE (15:30)
== END 2016-09-04 20:30 | disposition home or self-care (01) ==
LOC: ED 16:54
DX: D64.81 Anemia due to antineoplastic chemotherapy (principal); D61.1 Drug-induced aplastic anemia; M06.9 Rheumatoid arthritis, unspecified; Z88.1 Allergy status to other antibiotic agents; Z88.0 Allergy status to penicillin
CPT/HCPCS: 36415; 36430; 74022; 80053; 85025; 86850; 86900; 86923; 93005; 96361; 96374; 96375; 99285; J2405; J7030; P9016

== ENCOUNTER → 2016-09-04 | Outpatient (CLI) | payer OTHER ==
[~2016-09-04] MED LIST changes: +ALBU18HF INH; +ONDA8TAB12 PO
== END | disposition home or self-care (01) ==
LOC: WOUND 13:00
PROVIDERS: ATTEND Internal Medicine
DX: T81.31XD Disruption of external operation (surgical) wound, not elsewhere classified, subsequent encounter (principal); K43.0 Incisional hernia with obstruction, without gangrene; I10 Essential (primary) hypertension; J45.909 Unspecified asthma, uncomplicated; M06.9 Rheumatoid arthritis, unspecified; F32.9 Major depressive disorder, single episode, unspecified; F41.9 Anxiety disorder, unspecified; E43 Unspecified severe protein-calorie malnutrition; J44.9 Chronic obstructive pulmonary disease, unspecified; K21.9 Gastro-esophageal reflux disease without esophagitis; E66.01 Morbid (severe) obesity due to excess calories; Z68.39 Body mass index [BMI] 39.0-39.9, adult; G47.30 Sleep apnea, unspecified; F11.20 Opioid dependence, uncomplicated; Z85.828 Personal history of other malignant neoplasm of skin; M19.90 Unspecified osteoarthritis, unspecified site; Z85.01 Personal history of malignant neoplasm of esophagus; Z96.653 Presence of artificial knee joint, bilateral; F17.200 Nicotine dependence, unspecified, uncomplicated; Y83.8 Other surgical procedures as the cause of abnormal reaction of the patient, or of later complication, without mention of misadventure at the time of the procedure
CPT/HCPCS: G0463; WOU0463

== ENCOUNTER 2016-09-06 15:20 | Inpatient (IN) | payer OTHER ==
[~2016-09-06] VITALS: Ht 175.3 cm; Wt 113.2 kg
[2016-09-06] MEDS ORDERED: ONDANSETRON 2MG/ML, 2ML ONE (16:21)
[2016-09-06] MEDS ORDERED: HYDROmorphone 1 MG/ML, 1ML ONE (16:21)
[2016-09-06] MEDS: HYDROmorphone 1 MG/ML, 1ML IVPush PRN (16:28)
[2016-09-06] MEDS ORDERED: ONDANSETRON 2MG/ML, 2ML IVPush ONE (16:30)
[2016-09-06] MEDS ORDERED: SODIUM CHLORIDE FLUSH 10ML SYR IVF ONE (16:30)
[2016-09-06] MEDS ORDERED: SODIUM CHLORIDE 0.9% 1,000ML IVBOLUS ONE (16:30)
[2016-09-06] MEDS: SODIUM CHLORIDE 0.9% 1,000 ML IV SCH ×2 (17:00→21:19)
[2016-09-06 17:05] LABS: ASPARTATE AMINO TRANSFERASE 69 U/L (15-37); BLOOD UREA NITROGEN 10 mg/dL (7-18)
[2016-09-06] MEDS ORDERED: ONDA8TAB12 PO (17:10)
[2016-09-06] MEDS ORDERED: LEFL20TA16 PO (17:10)
[2016-09-06] MEDS ORDERED: CYCL-259 PO (17:10)
[2016-09-06] MEDS ORDERED: POTASSIUM CHLORIDE 20 MEQ in SODIUM CHLORIDE 0.9% 250 ML IV ONE (19:30)
[2016-09-06] MEDS ORDERED: POLYETHYLENE GLYCOL 17 GM PACKET PO PRN (19:30)
[2016-09-06] MEDS ORDERED: METOCLOPRAMIDE 5 MG/ML, 2ML IVPush PRN (19:30)
[2016-09-06] MEDS ORDERED: hydrALAzine 20 MG/ML, 1ML IVPush PRN (19:30)
[2016-09-06 19:49] VITALS: BP 114/69
[2016-09-06] MEDS: FLUTICASONE NASAL SPRAY 16GM NAS SCH (21:00)
[2016-09-06] MEDS: IPRATROPIUM 0.5 MG/2.5 ML INHA NPPB SCH (21:00)
[2016-09-06] MEDS: ATENOLOL 100 MG TABLET PO SCH (21:20)
[2016-09-06] MEDS: CYCLOBENZAPRINE 10 MG TABLET PO SCH (21:20)
[2016-09-06] MEDS: OXYcodone/APAP 10/325MG TABLET PO PRN (21:34)
[2016-09-06] MEDS: ENOXAPARIN 40 MG/0.4 ML SQ SCH (21:35)
[2016-09-07] MEDS ORDERED: ALBU18HF INH (01:26)
[2016-09-07] MEDS ORDERED: MOME13HF INH (01:26)
[2016-09-07 01:30] VITALS: BP 105/71
[2016-09-07] MEDS: OXYcodone/APAP 10/325MG TABLET PO PRN ×2 (01:38→10:00)
[2016-09-07] MEDS: IPRATROPIUM 0.5 MG/2.5 ML INHA NPPB SCH ×4 (03:00→21:45)
[2016-09-07 04:35] LABS: BLOOD UREA NITROGEN 12 mg/dL (7-18)
[2016-09-07] MEDS: SODIUM CHLORIDE 0.9% 1,000 ML IV SCH ×2 (06:54→18:07)
[2016-09-07 07:12] VITALS: BP 97/67
[2016-09-07] MEDS ORDERED: OXYcodone/APAP 10/325MG TABLET PO ONE (07:30)
[2016-09-07] MEDS ORDERED: MAGNESIUM SULFATE PMX 2GM/50ML 50 ML IV ONE (08:00)
[2016-09-07] MEDS: FLUTICASONE NASAL SPRAY 16GM NAS SCH ×2 (09:00→18:10)
[2016-09-07] MEDS: ATENOLOL 100 MG TABLET PO SCH ×2 (09:00→19:44)
[2016-09-07] MEDS: VENLAFAXINE 75 MG CAP ER PO SCH (09:43)
[2016-09-07] MEDS: CYCLOBENZAPRINE 10 MG TABLET PO SCH ×3 (09:43→20:04)
[2016-09-07] MEDS: PANTOPRAZOLE 40 MG IV IVPush SCH (09:43)
[2016-09-07] MEDS: HYDROmorphone 1 MG/ML, 1ML IVPush PRN (11:41)
[2016-09-07 13:05] VITALS: BP 105/66
[2016-09-07] MEDS: OXYcodone IR 5MG TABLET PO PRN ×3 (14:59→20:04)
[2016-09-07 18:53] VITALS: BP 99/62
[2016-09-07] MEDS: ENOXAPARIN 40 MG/0.4 ML SQ SCH (20:04)
[2016-09-07] MEDS: ONDANSETRON 2MG/ML, 2ML IVPush PRN (20:05)
[2016-09-07] MEDS: ACETAMINOPHEN 325 MG TABLET PO PRN (22:01)
[2016-09-08] VITALS (12 sets, daily range): BP systolic 94–130; BP diastolic 59–88
[2016-09-08] MEDS: SODIUM CHLORIDE 0.9% 1,000 ML IV SCH ×4 (01:19→20:37)
[2016-09-08] MEDS: OXYcodone IR 5MG TABLET PO PRN ×4 (01:59→22:10)
[2016-09-08] MEDS: IPRATROPIUM 0.5 MG/2.5 ML INHA NPPB SCH ×4 (03:00→21:00)
[2016-09-08] MEDS: HYDROmorphone 2 MG/ML, 1ML IVPush PRN (03:46)
[2016-09-08 05:43] LABS: BLOOD UREA NITROGEN 13 mg/dL (7-18)
[2016-09-08 05:49] LABS: ASPARTATE AMINO TRANSFERASE 88 U/L (15-37)
[2016-09-08 06:22] LABS: ANISOCYTOSIS 2+; HYPOCHROMIA 1+; MICROCYTOSIS 1+; POLYCHROMASIA 1+
[2016-09-08] MEDS: PANTOPRAZOLE 40 MG IV IVPush SCH (08:32)
[2016-09-08] MEDS: VENLAFAXINE 75 MG CAP ER PO SCH (08:33)
[2016-09-08] MEDS: CYCLOBENZAPRINE 10 MG TABLET PO SCH ×3 (08:37→20:37)
[2016-09-08] MEDS: ATENOLOL 100 MG TABLET PO SCH ×2 (08:38→20:37)
[2016-09-08] MEDS: DOCUSATE 100 MG CAPSULE PO SCH ×2 (10:18→20:37)
[2016-09-08] MEDS: FLUTICASONE NASAL SPRAY 16GM NAS SCH ×2 (11:48→20:36)
[2016-09-08] MEDS: ENOXAPARIN 40 MG/0.4 ML SQ SCH (20:37)
[2016-09-09] VITALS (9 sets, daily range): BP systolic 97–132; BP diastolic 60–84
[2016-09-09] MEDS: IPRATROPIUM 0.5 MG/2.5 ML INHA NPPB SCH ×4 (02:29→19:35)
[2016-09-09] MEDS: HYDROmorphone 2 MG/ML, 1ML IVPush PRN ×2 (02:33→09:18)
[2016-09-09] MEDS: SODIUM CHLORIDE 0.9% 1,000 ML IV SCH ×3 (02:33→17:56)
[2016-09-09] MEDS: OXYcodone IR 5MG TABLET PO PRN ×2 (05:43→17:53)
[2016-09-09] MEDS: ATENOLOL 100 MG TABLET PO SCH ×2 (09:00→21:39)
[2016-09-09] MEDS: VENLAFAXINE 75 MG CAP ER PO SCH (09:15)
[2016-09-09] MEDS: PANTOPRAZOLE 40 MG IV IVPush SCH (09:15)
[2016-09-09] MEDS: FLUTICASONE NASAL SPRAY 16GM NAS SCH ×2 (09:15→21:00)
[2016-09-09] MEDS: CYCLOBENZAPRINE 10 MG TABLET PO SCH (09:16)
[2016-09-09] MEDS: DOCUSATE 100 MG CAPSULE PO SCH ×2 (09:16→21:38)
[2016-09-09 09:43] LABS: ASPARTATE AMINO TRANSFERASE 98 U/L (15-37); BLOOD UREA NITROGEN 8 mg/dL (7-18)
[2016-09-09 10:28] LABS: ANISOCYTOSIS 2+; MICROCYTOSIS 1+; POLYCHROMASIA 1+
[2016-09-09 10:29] LABS: SCHISTOCYTES 1+
[2016-09-09] MEDS: ONDANSETRON 2MG/ML, 2ML IVPush PRN ×3 (11:00→21:39)
[2016-09-09] MEDS: ACETAMINOPHEN 325 MG TABLET PO PRN ×2 (14:37→21:39)
[2016-09-09] MEDS: ENOXAPARIN 40 MG/0.4 ML SQ SCH (21:40)
[2016-09-10] MEDS: OXYcodone IR 5MG TABLET PO PRN ×5 (00:30→22:52)
[2016-09-10] MEDS: SODIUM CHLORIDE 0.9% 1,000 ML IV SCH ×4 (00:31→20:07)
[2016-09-10 01:33] VITALS: BP 121/78
[2016-09-10] MEDS: IPRATROPIUM 0.5 MG/2.5 ML INHA NPPB SCH ×4 (03:00→19:15)
[2016-09-10] MEDS: ONDANSETRON 2MG/ML, 2ML IVPush PRN (03:17)
[2016-09-10 04:41] LABS: BLOOD UREA NITROGEN 9 mg/dL (7-18)
[2016-09-10 04:44] LABS: ASPARTATE AMINO TRANSFERASE 88 U/L (15-37)
[2016-09-10] MEDS ORDERED: PROCHLORPERAZINE 5 MG/ML, 2ML IM ONE (05:30)
[2016-09-10] MEDS: PANTOPRAZOLE 40 MG IV IVPush SCH ×2 (07:30→20:08)
[2016-09-10 07:55] VITALS: BP 155/103
[2016-09-10] MEDS ORDERED: PROCHLORPERAZINE 10MG TABLET PO PRN (08:00)
[2016-09-10] MEDS ORDERED: BENZOCAINE 20% SPRAY 0.5ML ONE (08:14)
[2016-09-10] MEDS ORDERED: LIDOCAINE GEL 2%, 5ML ONE (08:14)
[2016-09-10] MEDS ORDERED: BISACODYL 10 MG SUPP PR PRN (08:30)
[2016-09-10] MEDS ORDERED: DOCUSATE 100 MG CAPSULE PO SCH (09:00)
[2016-09-10] MEDS: POLYETHYLENE GLYCOL 17 GM PACKET PO SCH (09:21)
[2016-09-10] MEDS: ONDANSETRON ODT 8 MG PO SCH ×2 (09:21→22:00)
[2016-09-10] MEDS: FLUTICASONE NASAL SPRAY 16GM NAS SCH ×2 (09:21→21:00)
[2016-09-10] MEDS: CYCLOBENZAPRINE 10 MG TABLET PO SCH ×3 (09:22→22:00)
[2016-09-10] MEDS: VENLAFAXINE 75 MG CAP ER PO SCH (09:22)
[2016-09-10] MEDS: ATENOLOL 100 MG TABLET PO SCH ×2 (09:22→22:00)
[2016-09-10] MEDS: DOCUSATE 100 MG CAPSULE PO SCH ×2 (09:22→22:00)
[2016-09-10] MEDS: PROCHLORPERAZINE 10MG TABLET PO SCH ×3 (09:22→22:52)
[2016-09-10 12:41] VITALS: BP 127/82
[2016-09-10] MEDS ORDERED: IPRATROPIUM 0.5 MG/2.5 ML INHA ONE (13:30)
[2016-09-10] MEDS: SUCRALFATE 1 GM/10 ML UDC PO SCH ×2 (15:46→22:00)
[2016-09-10] MEDS: DEXAMETHASONE 4 MG TABLET PO SCH (16:43)
[2016-09-10 19:08] VITALS: BP 132/87
[2016-09-10] MEDS: ENOXAPARIN 40 MG/0.4 ML SQ SCH (20:08)
[2016-09-11] VITALS (8 sets, daily range): BP systolic 105–158; BP diastolic 70–117
[2016-09-11] MEDS: OXYcodone IR 5MG TABLET PO PRN ×3 (05:11→18:38)
[2016-09-11] MEDS: IPRATROPIUM 0.5 MG/2.5 ML INHA NPPB SCH ×3 (09:05→21:00)
[2016-09-11 09:27] LABS: ASPARTATE AMINO TRANSFERASE 113 U/L (15-37); BLOOD UREA NITROGEN 14 mg/dL (7-18)
[2016-09-11] MEDS ORDERED: NALOXONE 1 MG/ML, 2ML ONE (09:51)
[2016-09-11] MEDS ORDERED: FENTANYL PF 100 MCG/2ML ONE (09:51)
[2016-09-11] MEDS ORDERED: MIDAZOLAM 1 MG/ML, 5ML ONE (09:51)
[2016-09-11] MEDS ORDERED: LIDOCAINE 2%, 20ML ONE (09:52)
[2016-09-11] MEDS ORDERED: FLUMAZENIL 0.1 MG/1 ML, 5ML ONE (09:52)
[2016-09-11 10:06] LABS: DIFF TOTAL CELLS COUNTED 100 CELL DIFF
[2016-09-11 10:10] LABS: ANISOCYTOSIS 2+; MICROCYTOSIS 1+; POLYCHROMASIA 1+; VERIFY COUNTS? YES
[2016-09-11 10:11] LABS: LARGE PLATELETS 1+; MONOS WITH VACUOLES 1+
[2016-09-11] MEDS: SUCRALFATE 1 GM/10 ML UDC PO SCH ×4 (11:00→20:06)
[2016-09-11] MEDS: PANTOPRAZOLE 40 MG IV IVPush SCH ×2 (13:01→20:05)
[2016-09-11] MEDS: ONDANSETRON ODT 8 MG PO SCH ×2 (13:02→20:06)
[2016-09-11] MEDS: DEXAMETHASONE 4 MG TABLET PO SCH ×2 (13:02→18:38)
[2016-09-11] MEDS: PROCHLORPERAZINE 10MG TABLET PO SCH ×3 (13:03→20:06)
[2016-09-11] MEDS: FLUTICASONE NASAL SPRAY 16GM NAS SCH ×2 (13:07→20:06)
[2016-09-11] MEDS: CYCLOBENZAPRINE 10 MG TABLET PO SCH ×3 (13:08→20:07)
[2016-09-11] MEDS: VENLAFAXINE 75 MG CAP ER PO SCH (13:08)
[2016-09-11] MEDS: POLYETHYLENE GLYCOL 17 GM PACKET PO SCH (13:10)
[2016-09-11] MEDS: ATENOLOL 100 MG TABLET PO SCH ×2 (13:11→20:07)
[2016-09-11 13:12] LABS: DIFF TOTAL CELLS COUNTED 100 CELL DIFF
[2016-09-11] MEDS: DOCUSATE 100 MG CAPSULE PO SCH ×2 (13:12→20:06)
[2016-09-11 13:16] LABS: VERIFY COUNTS? YES
[2016-09-11 13:19] LABS: ANISOCYTOSIS 2+; POLYCHROMASIA 1+
[2016-09-11 13:21] LABS: LARGE PLATELETS 1+
[2016-09-11] MEDS: ENOXAPARIN 40 MG/0.4 ML SQ SCH (20:05)
[2016-09-11] MEDS: SODIUM CHLORIDE 0.9% 1,000 ML IV SCH ×2 (20:05→21:48)
[2016-09-12] VITALS (7 sets, daily range): BP systolic 128–156; BP diastolic 83–103
[2016-09-12] MEDS: OXYcodone IR 5MG TABLET PO PRN ×3 (05:02→16:37)
[2016-09-12 07:09] LABS: DIFF TOTAL CELLS COUNTED 100 CELL DIFF
[2016-09-12 07:23] LABS: VERIFY COUNTS? YES
[2016-09-12 07:24] LABS: ANISOCYTOSIS 2+; HYPOCHROMIA 1+; POLYCHROMASIA 1+
[2016-09-12] MEDS: DEXAMETHASONE 4 MG TABLET PO SCH ×2 (08:59→16:37)
[2016-09-12] MEDS: SUCRALFATE 1 GM/10 ML UDC PO SCH ×4 (08:59→22:15)
[2016-09-12] MEDS: DOCUSATE 100 MG CAPSULE PO SCH ×2 (08:59→22:15)
[2016-09-12] MEDS: PROCHLORPERAZINE 10MG TABLET PO SCH ×3 (08:59→22:15)
[2016-09-12] MEDS: PANTOPRAZOLE 40 MG IV IVPush SCH ×2 (08:59→22:14)
[2016-09-12] MEDS: FLUTICASONE NASAL SPRAY 16GM NAS SCH ×2 (08:59→22:14)
[2016-09-12] MEDS: ONDANSETRON ODT 8 MG PO SCH ×2 (08:59→22:15)
[2016-09-12] MEDS: CYCLOBENZAPRINE 10 MG TABLET PO SCH ×3 (08:59→22:15)
[2016-09-12] MEDS: IPRATROPIUM 0.5 MG/2.5 ML INHA NPPB SCH ×3 (09:00→21:40)
[2016-09-12] MEDS: VENLAFAXINE 75 MG CAP ER PO SCH (09:00)
[2016-09-12] MEDS: POLYETHYLENE GLYCOL 17 GM PACKET PO SCH (09:00)
[2016-09-12] MEDS: ATENOLOL 100 MG TABLET PO SCH ×2 (09:00→22:15)
[2016-09-12] MEDS: SODIUM CHLORIDE 0.9% 1,000 ML IV SCH (09:02)
[2016-09-12] MEDS ORDERED: MORPHINE SULFATE 4 MG/ML, 1ML IVPush ONE (14:00)
[2016-09-12] MEDS ORDERED: FUROSEMIDE 20 MG/2 ML IV ONE (14:00)
[2016-09-12] MEDS: ENOXAPARIN 40 MG/0.4 ML SQ SCH (22:15)
[2016-09-13] MEDS: SODIUM CHLORIDE 0.9% 1,000 ML IV SCH (01:30)
[2016-09-13 02:06] VITALS: BP 144/56
[2016-09-13] MEDS: OXYcodone IR 5MG TABLET PO PRN ×3 (03:43→20:54)
[2016-09-13 05:18] LABS: BLOOD UREA NITROGEN 20 mg/dL (7-18)
[2016-09-13 06:06] LABS: DIFF TOTAL CELLS COUNTED 100 CELL DIFF
[2016-09-13 06:09] LABS: ANISOCYTOSIS 2+; VERIFY COUNTS? YES
[2016-09-13 06:10] LABS: LARGE PLATELETS 1+; MONOS WITH VACUOLES 1+; POLYCHROMASIA 1+
[2016-09-13 06:41] VITALS: BP 147/93
[2016-09-13] MEDS: PANTOPRAZOLE 40 MG IV IVPush SCH (08:19)
[2016-09-13] MEDS: SUCRALFATE 1 GM/10 ML UDC PO SCH ×4 (08:19→20:53)
[2016-09-13] MEDS: ONDANSETRON ODT 8 MG PO SCH ×2 (08:20→20:53)
[2016-09-13] MEDS: DEXAMETHASONE 4 MG TABLET PO SCH ×2 (08:20→16:09)
[2016-09-13] MEDS: FLUTICASONE NASAL SPRAY 16GM NAS SCH ×2 (08:21→20:53)
[2016-09-13] MEDS: DOCUSATE 100 MG CAPSULE PO SCH ×2 (08:21→20:53)
[2016-09-13] MEDS: PROCHLORPERAZINE 10MG TABLET PO SCH ×3 (08:21→20:54)
[2016-09-13] MEDS ORDERED: ALBUTEROL SULFATE 2.5 MG/3 ML ONE ×2 (08:21→15:50)
[2016-09-13] MEDS: CYCLOBENZAPRINE 10 MG TABLET PO SCH ×3 (08:21→20:54)
[2016-09-13] MEDS: VENLAFAXINE 75 MG CAP ER PO SCH (08:21)
[2016-09-13] MEDS: POLYETHYLENE GLYCOL 17 GM PACKET PO SCH (08:22)
[2016-09-13] MEDS: ATENOLOL 100 MG TABLET PO SCH ×2 (08:23→20:54)
[2016-09-13] MEDS ORDERED: ALBUTEROL SULFATE 2.5 MG/3 ML NPPB PRN (08:30)
[2016-09-13 09:18] VITALS: BP 139/97
[2016-09-13 09:50] VITALS: BP 147/93
[2016-09-13] MEDS ORDERED: OMNIPAQUE 350 MG/ML, 100ML BOTTLE ONE (09:54)
[2016-09-13 10:29] LABS: ABG COLLECTION SITE LEFT RADIAL; COLLATERAL CIRCULATION TESTING NORMAL
[2016-09-13 12:57] VITALS: BP 144/92
[2016-09-13] MEDS ORDERED: MAGNESIUM SULFATE PMX 2GM/50ML 50 ML IV ONE (13:30)
[2016-09-13] MEDS ORDERED: VANCOMYCIN PER PHARMACY MC PRN (13:30)
[2016-09-13] MEDS ORDERED: PHARMACOKINETIC CONSULTATION MC ONE (13:30)
[2016-09-13] MEDS ORDERED: SODIUM PHOSPHATE 20 MMOL in SODIUM CHLORIDE 0.9% 500 ML IV ONE (13:30)
[2016-09-13] MEDS ORDERED: PHARMACOKINETIC MONITORING MC PRN (13:30)
[2016-09-13] MEDS: PIPERACILLIN/TAZO/PMX 3.375GM 50 ML IV SCH ×2 (13:46→20:53)
[2016-09-13] MEDS: FUROSEMIDE 40 MG/4 ML IV SCH (13:49)
[2016-09-13] MEDS ORDERED: ALBUTEROL/IPRATROPIUM 2.5MG/0.5MG, 3 ML ONE (15:44)
[2016-09-13] MEDS: VANCOMYCIN 2,000 MG in SODIUM CHLORIDE 0.9% 500 ML IV SCH (15:45)
[2016-09-13] MEDS ORDERED: ALBUTEROL/IPRATROPIUM 2.5MG/0.5MG, 3 ML NPPB SCH (16:00)
[2016-09-13] MEDS ORDERED: ALBUTEROL SULFATE 2.5 MG/3 ML NPPB SCH (16:00)
[2016-09-13] MEDS: ALBUTEROL SULFATE 2.5 MG/3 ML NPPB SCH ×2 (16:45→19:18)
[2016-09-13 19:35] VITALS: BP 121/74
[2016-09-13] MEDS: ENOXAPARIN 40 MG/0.4 ML SQ SCH (20:53)
[2016-09-13] MEDS: PANTOPROZOLE 40MG TABLET PO SCH (20:54)
[2016-09-14] MEDS: PIPERACILLIN/TAZO/PMX 3.375GM 50 ML IV SCH ×4 (01:40→21:57)
[2016-09-14 02:26] VITALS: BP 146/93
[2016-09-14] MEDS: OXYcodone IR 5MG TABLET PO PRN ×3 (04:21→18:34)
[2016-09-14] MEDS: VANCOMYCIN 2,000 MG in SODIUM CHLORIDE 0.9% 500 ML IV SCH ×2 (04:21→16:41)
[2016-09-14 04:46] LABS: BLOOD UREA NITROGEN 19 mg/dL (7-18)
[2016-09-14 06:45] VITALS: BP 154/92
[2016-09-14 07:36] LABS: DIFF TOTAL CELLS COUNTED 100 CELL DIFF
[2016-09-14 07:38] LABS: ANISOCYTOSIS 2+; VERIFY COUNTS? YES
[2016-09-14 07:39] LABS: POIKILOCYTOSIS 1+; POLYCHROMASIA 2+
[2016-09-14] MEDS: CYCLOBENZAPRINE 10 MG TABLET PO SCH ×3 (07:55→23:08)
[2016-09-14] MEDS: SUCRALFATE 1 GM/10 ML UDC PO SCH ×4 (07:55→23:08)
[2016-09-14] MEDS: FLUTICASONE NASAL SPRAY 16GM NAS SCH ×2 (07:55→23:08)
[2016-09-14] MEDS: DOCUSATE 100 MG CAPSULE PO SCH ×2 (07:55→21:00)
[2016-09-14] MEDS: PANTOPROZOLE 40MG TABLET PO SCH ×3 (07:55→23:08)
[2016-09-14] MEDS: ONDANSETRON ODT 8 MG PO SCH ×2 (07:56→23:09)
[2016-09-14] MEDS: DEXAMETHASONE 4 MG TABLET PO SCH ×2 (07:56→18:16)
[2016-09-14] MEDS: POLYETHYLENE GLYCOL 17 GM PACKET PO SCH (07:56)
[2016-09-14] MEDS: VENLAFAXINE 75 MG CAP ER PO SCH (07:56)
[2016-09-14] MEDS: FUROSEMIDE 40 MG/4 ML IV SCH ×2 (07:56→18:16)
[2016-09-14] MEDS: PROCHLORPERAZINE 10MG TABLET PO SCH ×3 (07:57→23:08)
[2016-09-14] MEDS: ALBUTEROL SULFATE 2.5 MG/3 ML NPPB SCH ×3 (10:30→21:00)
[2016-09-14] MEDS ORDERED: FENTANYL REMOVE PATCH NOTE XX SCH (11:00)
[2016-09-14] MEDS ORDERED: HYDROmorphone 1 MG/ML, 1ML IV PRN (11:00)
[2016-09-14] MEDS ORDERED: FENTANYL 25 MCG PATCH TD SCH (11:00)
[2016-09-14] MEDS: ATENOLOL 100 MG TABLET PO SCH ×2 (13:05→23:09)
[2016-09-14] MEDS ORDERED: POTASSIUM CHLORIDE 20 MEQ TAB.ER.PRT PO ONE (16:00)
[2016-09-14 20:00] VITALS: BP 137/88
[2016-09-15 03:00] VITALS: BP 149/99
[2016-09-15] MEDS: PIPERACILLIN/TAZO/PMX 3.375GM 50 ML IV SCH ×4 (04:03→20:53)
[2016-09-15] MEDS: VANCOMYCIN 2,000 MG in SODIUM CHLORIDE 0.9% 500 ML IV SCH ×2 (04:47→17:14)
[2016-09-15 08:42] VITALS: BP 148/86
[2016-09-15] MEDS: SUCRALFATE 1 GM/10 ML UDC PO SCH ×4 (09:38→20:53)
[2016-09-15] MEDS: DEXAMETHASONE 4 MG TABLET PO SCH ×2 (09:39→17:14)
[2016-09-15] MEDS: PANTOPROZOLE 40MG TABLET PO SCH ×2 (09:40→20:53)
[2016-09-15] MEDS: FUROSEMIDE 40 MG/4 ML IV SCH ×2 (09:40→17:14)
[2016-09-15] MEDS: DOCUSATE 100 MG CAPSULE PO SCH ×2 (09:41→20:53)
[2016-09-15] MEDS: FLUTICASONE NASAL SPRAY 16GM NAS SCH ×2 (09:41→20:54)
[2016-09-15] MEDS: VENLAFAXINE 75 MG CAP ER PO SCH (09:41)
[2016-09-15] MEDS: PROCHLORPERAZINE 10MG TABLET PO SCH ×3 (09:41→20:52)
[2016-09-15] MEDS: POLYETHYLENE GLYCOL 17 GM PACKET PO SCH (09:42)
[2016-09-15] MEDS: CYCLOBENZAPRINE 10 MG TABLET PO SCH ×3 (09:42→20:53)
[2016-09-15] MEDS: ONDANSETRON ODT 8 MG PO SCH ×2 (09:43→20:52)
[2016-09-15] MEDS: ATENOLOL 100 MG TABLET PO SCH ×2 (09:43→20:53)
[2016-09-15] MEDS: OXYcodone IR 5MG TABLET PO PRN ×2 (12:32→18:27)
[2016-09-15 13:47] VITALS: BP 111/79
[2016-09-15 19:00] VITALS: BP 121/68
[2016-09-15] MEDS ORDERED: PHARMACOKINETIC MONITORING MC PRN (19:30)
[2016-09-15] MEDS ORDERED: POLYETHYLENE GLYCOL 17 GM PACKET PO PRN (19:30)
[2016-09-15] MEDS ORDERED: ACETAMINOPHEN 325 MG TABLET PO PRN (19:30)
[2016-09-15] MEDS ORDERED: BISACODYL 10 MG SUPP PR PRN (19:30)
[2016-09-15] MEDS ORDERED: VANCOMYCIN PER PHARMACY MC PRN (19:30)
[2016-09-15] MEDS ORDERED: HYDROmorphone 1 MG/ML, 1ML IV PRN (19:30)
[2016-09-15] MEDS ORDERED: hydrALAzine 20 MG/ML, 1ML IVPush PRN (19:30)
[2016-09-15] MEDS ORDERED: ALBUTEROL SULFATE 2.5 MG/3 ML NPPB PRN (21:00)
[2016-09-15] MEDS ORDERED: morphine SULFATE 125 MG in SODIUM CHLORIDE 0.9% 237.5 ML IV PRN (21:56)
[2016-09-15] MEDS ORDERED: SCOPOLAMINE PATCH, 1.5MG PATCH.TD72 TD PRN (22:00)
[2016-09-15] MEDS ORDERED: ATROPINE OPHTH SOLN 1%, 5ML BC PRN (22:00)
[2016-09-15] MEDS ORDERED: LORazepam 2 MG/ML, 1ML IVPush PRN (22:00)
[2016-09-16] MEDS ORDERED: POLYETHYLENE GLYCOL 17 GM PACKET PO SCH (09:00)
== END 2016-09-16 | disposition expired | DRG 374 ==
LOC: ED 15:54 → EDIP 18:03 → 3NW 19:10
PROVIDERS: ADMIT Family Medicine; ATTEND Family Medicine
PROC: 30233N1 Transfusion of Nonautologous Red Blood Cells into Peripheral Vein, Percutaneous Approach (ICD-10-PCS; 2016-09-09)
PROC: 0FB03ZX Excision of Liver, Percutaneous Approach, Diagnostic (ICD-10-PCS; principal; 2016-09-11)
DX: C15.9 Malignant neoplasm of esophagus, unspecified (principal); E43 Unspecified severe protein-calorie malnutrition; J96.91 Respiratory failure, unspecified with hypoxia; E87.1 Hypo-osmolality and hyponatremia; C78.7 Secondary malignant neoplasm of liver and intrahepatic bile duct; R64 Cachexia; D53.9 Nutritional anemia, unspecified; D63.8 Anemia in other chronic diseases classified elsewhere; D64.81 Anemia due to antineoplastic chemotherapy; D69.6 Thrombocytopenia, unspecified; D72.829 Elevated white blood cell count, unspecified; D75.89 Other specified diseases of blood and blood-forming organs; E11.9 Type 2 diabetes mellitus without complications; E87.6 Hypokalemia; F17.200 Nicotine dependence, unspecified, uncomplicated; G47.30 Sleep apnea, unspecified; G89.29 Other chronic pain; I10 Essential (primary) hypertension; J44.9 Chronic obstructive pulmonary disease, unspecified; K21.9 Gastro-esophageal reflux disease without esophagitis; M06.9 Rheumatoid arthritis, unspecified; R62.7 Adult failure to thrive; T45.1X5A Adverse effect of antineoplastic and immunosuppressive drugs, initial encounter; W19.XXXA Unspecified fall, initial encounter; Z96.653 Presence of artificial knee joint, bilateral; Y92.239 Unspecified place in hospital as the place of occurrence of the external cause; Z51.5 Encounter for palliative care; Z66 Do not resuscitate; Z80.8 Family history of malignant neoplasm of other organs or systems; Z82.0 Family history of epilepsy and other diseases of the nervous system; Z82.3 Family history of stroke; Z82.49 Family history of ischemic heart disease and other diseases of the circulatory system; Z92.3 Personal history of irradiation; Z68.36 Body mass index [BMI] 36.0-36.9, adult; Z88.8 Allergy status to other drugs, medicaments and biological substances
CPT/HCPCS: 36415; 36600; 47000; 70450; 71010; 71275; 72110; 72220; 74220; 74340; 76700; 76942; 80048; 80053; 81001; 82040; 82140; 82607; 82728; 82746; 82803; 83540; 83550; 83605; 83690; 83735; 84100; 84443; 85014; 85018; 85025; 85045; 85610; 86850; 86900; 86923; 87040; 87086; 88307; 88313; 88341; 88342; 94640; 96361; 96374; 99156; 99157; J1170; J1650; J1940; J2250; J2405; J2543; J3010; J3370; J3480; J3490; J7613; J7644; Q0162; Q0164; Q9967; C9113; G0461; J2310; J3475; J7030; J7040; J7050; P9016